=== PATIENT | male | born 1935 | race Caucasian/White ===

== ENCOUNTER 2017-04-16 13:00 | Inpatient (IN) | payer MEDICARE, OTHER ==
[~2017-04-16] VITALS: Ht 180.3 cm; Wt 75.0 kg
--- NOTE | ~2017-04-16 | DS ---
PATIENT'S NAME: TRUMAN SCHMITZ [facility] AGE: 81 Y [address] 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 DISCHARGE DIAGNOSES: 1. Left ankle degenerative joint disease, status post left total ankle replacement. 2. Acute encephalopathy, secondary to hospital delirium, medications, and sleep deprivation. SECONDARY DIAGNOSES: 1. Atrial fibrillation. 2. Chronic kidney disease. 3. Hypertension. 4. History of prostate cancer. 5. History of lung infiltrates. 6. History of dyspnea. DISCHARGE STATUS: Good. CONSULTATIONS: Hospital Service for medical management. PROCEDURES: The patient underwent the following procedure by Dr. Caneal on May 01, 2017. 1. Left total ankle arthroplasty. 2. Gastrocnemius recession procedure. HISTORY OF PRESENT ILLNESS: The patient is an 81-year-old male who was seen by Dr. Canela in the office for longstanding history of left ankle pain. For the past 3 months or so, the left ankle had become more intolerable. He had been limited in his ability to participate in his activities of daily living. 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 He is unable to do these activities because the ankle was so sore. He had successful knee replacement in the past by Dr. Roque and only regrets having not done it sooner. He was seen by Dr. Canela reporting that his left ankle severely inhibits his ability. Aggravating factors include standing, walking, exercising, and working on his ranch. Relieving factors include rest, ice, elevation, and nonsteroidal antiinflammatory medications. The patient was determined to be a candidate for left total ankle arthroplasty at that time and was scheduled for surgery after being counseled on the risks, benefits, and alternatives at the office visit that day. PATIENT'S NAME: TRUMAN SCHMITZ [facility] AGE: 81 Y [address] ROOM: [place] [address] [place] [facility] [place]: 05/01/2017 Discharge Summary DISCHARGE DATE: 05/10/2017 FAMILY PHYSICIAN: Jimmy Bliss MD ATTENDING PHYSICIAN: Cristian Canela HOSPITAL COURSE: The patient underwent the above-described procedure on May 01, [address] Canela. Postoperatively, he did work with physical therapy on gait training and transfer training since he was kept to be nonweightbearing of his operative extremity. He was given 24-hours of perioperative antibiotics. He was kept under adequate pain control and had medications adjusted due so. Postoperatively, the patient did develop acute encephalopathy/delirium. He was evaluated by Hospital Service medically and his delirium was felt to be multifactorial including combination of hospital delirium, narcotic pain medications, and sleep deprivation. The patient was started on the hospital delirium protocol. His medications were adjusted. He was given medications to help him rest and keep him from being agitated. Also, narcotic pain medications were stopped. The patient did improve, he was able to rest, he was not agitated, and the patient was optimized to be discharged to [facility] on May 10, 2017. DISCHARGE INSTRUCTIONS: The patient is to be strict nonweightbearing of the left lower extremity. He needs to work on physical therapy and occupational therapy for gait and transfer training and quadriceps exercises. The patient is to have a followup x-ray for left lateral upper lobe opacities for resolution excluding underlying mass. The patient is to avoid narcotics. He is to have his SaO2 sat of 90% as required O2 intermittently. He is to have a followup BMP on May 11, 2017, that is to be faxed to his PCP. No restrictions on his diet. The patient is to keep his operative lower extremity splint clean, dry, and intact. Discharge medications: The patient's new medications Colace 100 mg twice a day as needed for constipation, Colace to be hold be held for loose stools, Lovenox 40 mg subcu daily, MiraLAX 17 g daily p.r.n. constipation, to be held for loose stools, Seroquel 25 mg at night for delirium, Tylenol 325 mg 1-2 tabs every 6 hours as needed for pain. The patient is to otherwise continue his preadmission medications as instructed by his Internal Medicine doctor. FOLLOW UP: The patient is to follow up with Dr. Canela in 2 weeks after discharge for followup for his initial postoperative visit. KAROL ROQUE PA-C FOR MD FILIPPO VELOZ/kyle /[id number] d: 05/19/17 2358 t: 05/20/17 1751, DISCHARGE SUMMARY
--- NOTE | ~2017-04-16 | OR ---
PATIENT'S NAME: TRUMAN SCHMITZ [facility] AGE: 81 Y [address] ROOM: [place] [address] LOCATION: [facility] ADMIT DATE: 05/01/2017 OR/Procedure Report DISCHARGE DATE: FAMILY PHYSICIAN: Jimmy Bliss MD ATTENDING PHYSICIAN: MARYCARMEN SANDOVAL SURGEON: Marycarmen Sandoval MD SEBD TEACHER: Shoaib Amezquita PA-C. 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 PROCEDURES: 1. Left total ankle arthroplasty. 2. Gastrocnemius recession procedure. 3. Use of intraoperative fluoroscopy, less than 1 hour. ANESTHESIA: Spinal anesthesia with peripheral nerve blocks. ESTIMATED BLOOD LOSS: 200 mL. FLUIDS: See Anesthesia report. SPECIMEN: None. COMPLICATIONS: None. TOURNIQUET: Left proximal thigh 250 mmHg. DISPOSITION: Stable in PACU. COUNTS: All counts were correct. IMPLANTS: Kevyn STAR left total ankle arthroplasty system. Size large tibia tray, size small talus, and size seven polyethylene liner. INDICATIONS: Mr. Irwin is a pleasant 81-year-old gentleman, who underwent the noted procedures above. The risks, benefits, and alternatives to surgical intervention were discussed the patient in detail. The patient elected to proceed with surgery. Anesthesia was consulted for their perioperative evaluation of the patient. I marked the left ankle indicating correct surgical site. DESCRIPTION OF PROCEDURE: The patient was brought from the holding area to PATIENT'S NAME: SCHMITZTRUMAN JEAN [facility] AGE: 81 Y [address] ROOM: [place] [address] LOCATION: [facility] ADMIT DATE: 05/01/2017 OR/Procedure Report DISCHARGE DATE: FAMILY PHYSICIAN: Jimmy Bliss MD ATTENDING PHYSICIAN: MARYCARMEN SANDOVAL the operating room. Time-out was performed. Anesthesia performed at the portion of procedure. 2 g of Ancef antibiotic were administered for perioperative prophylaxis. The left lower extremity was then prepped and draped in a sterile fashion. A time-out was performed. An Esmarch was used to exsanguinate the limb. The tourniquet was inflated to 250 mmHg. Of note, the patient's previous vascular surgery as noted by previous saphenous harvest noted by the eschar at the medial aspect of the leg. I then turned my attention medial aspect of the leg. I performed a longitudinal incision through the previous surgical incision to gain access to the gastrocnemius aponeurosis. I performed a gastrocnemius recession procedure. I was able to obtain good excursion of the ankle. The wound was then copiously irrigated with normal sterile saline solution closed in layers. I then turned my attention to the anterior aspect of the ankle. I performed anterior incision through skin and subcutaneous tissue. I then incised the capsule. I performed soft tissue releases medially and laterally. I removed bony osteophytes with the osteotome. I would start with a with a rongeur. I then placed a pin in the tibial tubercle. I placed my jig for the distal tibia cut. I introduced intraoperative fluoroscopy to line up my cut. I then used the oscillating saw to perform distal tibia plafond cut. It was confirmed fluoroscopically. The bone was then removed. I then turned my attention to the talus. I placed my jig and made my talar dome cut. I confirmed this fluoroscopically. I then introduced the trial componentry for sizing purposes. I found that the size selected were appropriate and they were all subsequently removed. The wound was then copiously irrigated with a normal sterile saline solution. The gutters in the medial lateral side were well cleaned of bone. Notably, the patient had advanced degenerative changes at the joint and ankylosis picture. I then placed my final talus component and it seated well. I then turned my attention to the distal tibia. I then placed my distal tibial final component. I then used a trial size 7 polyethylene liner and found this to be adequate. There was no lift-off with range of motion. I achieved approximately 10 degrees of dorsiflexion past neutral and approximately 40 degrees of plantar flexion. During the course of the case, the patient's soft tissues were rather oozy, this may have been because he has been chronically anticoagulated with Coumadin despite the fact his INR is 1.2 today. Thrombin and Gelfoam were used to help assist with maintaining hemostasis. PATIENT'S NAME: TRUMAN SCHMITZ [facility] AGE: 81 Y [address] ROOM: [id number] [place] [id number] LOCATION: [facility] ADMIT DATE: 05/01/2017 OR/Procedure Report DISCHARGE DATE: FAMILY PHYSICIAN: Jimmy Bliss MD ATTENDING PHYSICIAN: MARYCARMEN SANDOVAL Final fluoroscopic images revealed evidence of a successful left total ankle arthroplasty with well-fixed hardware in place. There was satisfactory range of motion. 0 Vicryl suture was used to approximate the extensor retinaculum and then the wound was closed in layers using 2-0 Vicryl suture and followed by mariann for the skin. The tourniquet was let down. The toes were reperfused. Sterile dressing was placed in form of Xeroform, followed by 4x4, Webril, and Marquis bandage. The patient then placed in a well-padded short-leg splint with the ankle in neutral dorsiflexion. The patient was then transferred to operating table onto the stretcher and brought to recovery room in stable condition. There were no intraoperative complications noted. Of note, my PA, Shoaib Amezquita PA-C, played in integral role in the intraoperative care of this patient. This included preoperative positioning, intraoperative expert retraction, and closing and splinting functions. IMPRESSION: The patient is status post the noted procedure above. PLAN: The patient will be nonweightbearing left lower extremity in a short- leg splint. Encouraged to rest, ice, and elevate the extremity going forward. Postoperative pain for pain control for the of Percocet and IV morphine as needed for pain. Postop antibiotics will be in the form of Ancef per routine. The hospitalist will be consulted to manage the patient's concomitant medical comorbidities. Their peripheral nerve blocks placed to assist with pain control. Physical Therapy and Occupational Therapy were consulted postoperatively for early ambulation prevention of deconditioning. I will continue to monitor the patient closely in the postoperative period. MD KAMI VELOZ/modl /[id number] d: 05/01/17 1913 t: 06/08/17 0831, OPERATIVE SUMMARY
--- NOTE | ~2017-04-16 | CON ---
PATIENT'S NAME: TRUMAN SCHMITZ [facility] AGE: 81 Y [address] ROOM: [address] [address] [place] [facility] [place]: 05/01/2017 Consultation DISCHARGE DATE: 05/10/2017 FAMILY PHYSICIAN: Jimmy Bliss MD ATTENDING PHYSICIAN: Cristian Canela CORRECTED WORK TYPE 05/16/17 AO DATE OF CONSULTATION: 05/01/2017 REFERRING PHYSICIAN: Lea Sosa MD ADDENDUM: PREOPERATIVE DIAGNOSES: 1. 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 2. Gastrocnemius equinus/shortened Achilles tendon. POSTOPERATIVE DIAGNOSES: 1. 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 2. Gastrocnemius equinus/shortened Achilles tendon. MD KAMI VELOZ/modl /[id number] CORRECTED WORK TYPE 05/16/17 AO d: 05/10/17 0955 t: 05/17/17 0837, CONSULTATION REPORT
--- NOTE | ~2017-04-16 | HP ---
PATIENT'S NAME: TRUMAN SCHMITZ [facility] AGE: 81 Y [address] ROOM: [place] [address] [place] [facility] [place] DATE: 05/01/2017 History & Physical DISCHARGE DATE: 05/10/2017 FAMILY PHYSICIAN: Jimmy Bliss MD ATTENDING PHYSICIAN: Cristian Canela CORRECTED PT ACCOUNT 05/17/17 AO DATE OF SERVICE: ADDENDUM: This serves as an H and P update for Truman Irwin. His previous H and P was more than 30 days out-of-date. I find no new changes. This serves as my H and P update for Truman Irwin for his surgery dated 05/01/2017. MD KAMI VELOZ/kyle /[id number] CORRECTED PT ACCOUNT 05/17/17 AO D: 7 T: HISTORY & PHYSICAL
[2017-04-16] MEDS ORDERED: LOPRESSOR50 MG PO (14:43)
[2017-04-16] MEDS ORDERED: BICALUTAMIDE50 MG PO (14:44)
[2017-04-16] MEDS ORDERED: NORVASC5 MG PO (14:44)
[2017-04-16] MEDS ORDERED: ZYLOPRIM300 MG PO (14:44)
[2017-04-16] MEDS ORDERED: ZESTRIL40 MG PO (14:44)
[2017-04-16] MEDS ORDERED: LEVOTHROID(SYN75 MCG PO (14:44)
[2017-04-16] MEDS ORDERED: ASPIRIN325 MG PO (14:45)
[2017-04-16] MEDS ORDERED: SPIRIVA HA30 CAP/INH INH (14:45)
[2017-04-16] MEDS ORDERED: ZOCOR20 MG PO (14:47)
[2017-04-16] MEDS ORDERED: ICAPS MV TABLE1 EACH PO (14:47)
[2017-04-16] MEDS ORDERED: ALLEGRA180 MG PO (14:49)
[2017-04-16] MEDS ORDERED: TYLENOL PM EX-1 EACH PO (14:49)
[2017-04-16] MEDS ORDERED: LUPRON DEPOT45 MG IM (14:49)
[2017-05-01 08:50] LABS: INR - (THERAPEUTIC) 1.21 (0.92-1.07); PROTIME 12.7 SECONDS (9.8-11.4); PTT 27 SECONDS (25-32)
[2017-05-01 09:00] LABS: BASOPHIL % 1.1 %; EOSINOPHIL # 0.2 K/uL (0.0-0.5); EOSINOPHIL % 5.1 %; HEMATOCRIT 35.3 % (33.0-50.0); HEMOGLOBIN 11.2 g/dL (11.0-16.0); IMMATURE GRANULOCYTE % 0.3 %; LYMPHOCYTE # 0.8 K/uL (0.8-4.0); LYMPHOCYTE % 22.1 %; MCH 31.5 pg (27.0-34.0); MCHC 31.7 gm/dL (32.0-36.5); MCV 99.2 fl (83.0-98.0); MONOCYTE # 0.3 K/uL (0.0-1.0); MONOCYTE % 9.1 %; MPV 9.7 fl (9.4-12.4); NEUTROPHIL # (ANC) 2.3 K/uL (1.4-9.0); NEUTROPHIL % 62.3 %; NRBC % 0 /100WBC (0-0.00); PLATELET COUNT 157 K/uL (150-450); RBC 3.56 M/uL (3.50-5.50); RDW-CV 12.8 % (11.9-14.6); WBC 3.8 K/uL (4.0-11.0)
[2017-05-02 05:50] LABS: HEMATOCRIT 30.2 % (33.0-50.0); HEMOGLOBIN 9.6 g/dL (11.0-16.0)
[2017-05-03 06:10] LABS: HEMATOCRIT 28.4 % (33.0-50.0); HEMOGLOBIN 9.2 g/dL (11.0-16.0)
[2017-05-03 10:12] LABS: BILIRUBIN URINE NEGATIVE (NEGATIVE); BLOOD URINE 10 /UL (NEGATIVE); COLOR URINE AMBER (YELLOW); GLUCOSE URINE NEGATIVE (NEGATIVE); KETONE URINE 5 mg/dL (NEGATIVE); LEUKOCYTES URINE 25 /UL (NEGATIVE); NITRITE URINE NEGATIVE (NEGATIVE); PROTEIN URINE 30 mg/dL (NEGATIVE); TURBIDITY URINE CLEAR (CLEAR); UROBILINOGEN URINE 4 mg/dL (NORMAL)
[2017-05-03 10:21] LABS: RBC URINE 0-2 #/HPF (NEGATIVE)
[2017-05-03 10:22] LABS: AMORPHOUS URINE 1+ (NEGATIVE); BACTERIA URINE MANY (NEGATIVE); GRANULAR CASTS URINE 0-2 #/LPF (NEGATIVE); HYALINE CAST URINE 0-2 #/LPF (NEGATIVE); MUCUS URINE 1+ (NEGATIVE)
[2017-05-03 10:26] LABS: BICARBONATE 22.8 mmol/L (18.0-23.0); PCO2 30 mmHg (35-45); PO2 76 mmHg (80-90)
[2017-05-03 10:37] LABS: BASOPHIL % 0.3 %; EOSINOPHIL % 0.1 %; HEMATOCRIT 26.5 % (33.0-50.0); HEMOGLOBIN 8.7 g/dL (11.0-16.0); IMMATURE GRANULOCYTE % 0.6 %; LYMPHOCYTE # 0.7 K/uL (0.8-4.0); LYMPHOCYTE % 9.4 %; MCH 32.2 pg (27.0-34.0); MCHC 32.8 gm/dL (32.0-36.5); MCV 98.1 fl (83.0-98.0); MONOCYTE # 0.7 K/uL (0.0-1.0); MONOCYTE % 9.5 %; MPV 9.8 fl (9.4-12.4); NEUTROPHIL # (ANC) 5.7 K/uL (1.4-9.0); NEUTROPHIL % 80.1 %; NRBC % 0 /100WBC (0-0.00); RDW-CV 12.9 % (11.9-14.6); WBC 7.2 K/uL (4.0-11.0)
[2017-05-03 10:38] LABS: PLATELET COUNT 121 K/uL (150-450)
[2017-05-03 10:56] LABS: ANION GAP 14.8 (10.0-19.0); CALCIUM 8.7 mg/dL (8.5-10.5); CREATININE 1.2 mg/dL (0.6-1.3); MAGNESIUM 2.2 mg/dL (1.8-2.6); POTASSIUM 3.8 mMol/L (3.7-5.1)
[2017-05-04 07:07] LABS: ANION GAP 14.9 (10.0-19.0); CALCIUM 8.7 mg/dL (8.5-10.5); CREATININE 1.4 mg/dL (0.6-1.3); POTASSIUM 3.9 mMol/L (3.7-5.1)
[2017-05-04 07:50] LABS: BASOPHIL % 0.4 %; EOSINOPHIL # 0.1 K/uL (0.0-0.5); EOSINOPHIL % 0.6 %; HEMATOCRIT 28.8 % (33.0-50.0); HEMOGLOBIN 9.3 g/dL (11.0-16.0); IMMATURE GRANULOCYTE # 0.1 K/uL (0.0-0.3); IMMATURE GRANULOCYTE % 0.6 %; LYMPHOCYTE % 11.9 %; MCHC 32.3 gm/dL (32.0-36.5); MONOCYTE # 0.5 K/uL (0.0-1.0); MONOCYTE % 6.5 %; MPV 10.2 fl (9.4-12.4); NEUTROPHIL # (ANC) 6.4 K/uL (1.4-9.0); NRBC % 0 /100WBC (0-0.00); RBC 2.91 M/uL (3.50-5.50); RDW-CV 12.9 % (11.9-14.6)
[2017-05-04 08:13] LABS: PLATELET COUNT 149 K/uL (150-450)
[2017-05-07 06:17] LABS: ANION GAP 12.7 (10.0-19.0); BLOOD UREA NITROGEN 50 mg/dL (6-24); CALCIUM 8.6 mg/dL (8.5-10.5); CHLORIDE 111 mMol/L (96-110); CO2 23 mMol/L (22-32); CREATININE 1.1 mg/dL (0.6-1.3); POTASSIUM 3.7 mMol/L (3.7-5.1); SODIUM 143 mMol/L (135-145)
[2017-05-07 06:27] LABS: ESTIMATED GFR (MDRD EQUATION) > 60
[2017-05-09 11:31] LABS: BASOPHIL % 0.5 %; EOSINOPHIL # 0.2 K/uL (0.0-0.5); HEMATOCRIT 28.6 % (33.0-50.0); HEMOGLOBIN 9.3 g/dL (11.0-16.0); IMMATURE GRANULOCYTE % 0.7 %; LYMPHOCYTE # 1.1 K/uL (0.8-4.0); MCH 32.2 pg (27.0-34.0); MCHC 32.5 gm/dL (32.0-36.5); MONOCYTE # 0.5 K/uL (0.0-1.0); MONOCYTE % 8.7 %; MPV 9.6 fl (9.4-12.4); NEUTROPHIL # (ANC) 4.1 K/uL (1.4-9.0); NEUTROPHIL % 68.1 %; NRBC % 0 /100WBC (0-0.00); PLATELET COUNT 248 K/uL (150-450); RBC 2.89 M/uL (3.50-5.50)
[2017-05-09 11:40] LABS: ANION GAP 10.6 (10.0-19.0); BLOOD UREA NITROGEN 47 mg/dL (6-24); CALCIUM 8.7 mg/dL (8.5-10.5); CHLORIDE 115 mMol/L (96-110); CO2 25 mMol/L (22-32); CREATININE 1.1 mg/dL (0.6-1.3); ESTIMATED GFR (MDRD EQUATION) > 60; POTASSIUM 3.6 mMol/L (3.7-5.1); SODIUM 147 mMol/L (135-145)
== END 2017-05-10 11:16 | disposition swing bed (61) | DRG 469 ==
LOC: G3N 05-01 07:19 → GMSU 05-04 15:31
PROVIDERS: Nurse Anesthetist, Certified Registered; Nurse Practitioner Family; ADMIT Orthopaedic Surgery Adult Reconstructive Orthopaedic Surgery
PROC: BW1C1ZZ Fluoroscopy of Lower Extremity using Low Osmolar Contrast (ICD-10-PCS; principal; 2017-05-01)
PROC: 0LSP0ZZ Reposition Left Lower Leg Tendon, Open Approach (ICD-10-PCS; principal; 2017-05-01)
PROC: 0SRG0JZ Replacement of Left Ankle Joint with Synthetic Substitute, Open Approach (ICD-10-PCS; principal; 2017-05-01)
DX: M19.072 Primary osteoarthritis, left ankle and foot (principal); J96.01 Acute respiratory failure with hypoxia; G93.41 Metabolic encephalopathy; N17.9 Acute kidney failure, unspecified; I13.0 Hypertensive heart and chronic kidney disease with heart failure and stage 1 through stage 4 chronic kidney disease, or unspecified chronic kidney disease; I50.22 Chronic systolic (congestive) heart failure; E44.1 Mild protein-calorie malnutrition; I42.9 Cardiomyopathy, unspecified; M21.6X2 Other acquired deformities of left foot; M20.12 Hallux valgus (acquired), left foot; M21.42 Flat foot [pes planus] (acquired), left foot; N18.3 Chronic kidney disease, stage 3 (moderate); I48.91 Unspecified atrial fibrillation; R41.0 Disorientation, unspecified; Z85.46 Personal history of malignant neoplasm of prostate; F10.21 Alcohol dependence, in remission; H35.30 Unspecified macular degeneration; E78.5 Hyperlipidemia, unspecified; E03.9 Hypothyroidism, unspecified; I27.2 Other secondary pulmonary hypertension; F17.290 Nicotine dependence, other tobacco product, uncomplicated; Z85.828 Personal history of other malignant neoplasm of skin; Z95.1 Presence of aortocoronary bypass graft; Z95.0 Presence of cardiac pacemaker; Z96.653 Presence of artificial knee joint, bilateral; Z79.01 Long term (current) use of anticoagulants; Z79.82 Long term (current) use of aspirin; S30.1XXA Contusion of abdominal wall, initial encounter; Z68.26 Body mass index [BMI] 26.0-26.9, adult; R91.8 Other nonspecific abnormal finding of lung field
CPT/HCPCS: A9270; C1776; J0690; J1630; J1650; J2001; J2250; J2405; J7120; P9045

== ENCOUNTER → 2017-04-18 | Outpatient (CLI) | payer MEDICARE, OTHER ==
[~2017-04-18] MED LIST: ALLEGRA180 MG PO; ASPIRIN325 MG PO; BICALUTAMIDE50 MG PO; ICAPS MV TABLE1 EACH PO; LEVOTHROID(SYN75 MCG PO; LOPRESSOR50 MG PO; LUPRON DEPOT45 MG IM; NORVASC5 MG PO; SPIRIVA HA30 CAP/INH INH; TYLENOL PM EX-1 EACH PO; ZESTRIL40 MG PO; ZOCOR20 MG PO; ZYLOPRIM300 MG PO
== END | disposition disaster alternative care site (69) ==
LOC: GNJRC 10:08
DX: Z01.812 Encounter for preprocedural laboratory examination (principal); M19.072 Primary osteoarthritis, left ankle and foot